=== PATIENT | male | born 1945 | race Caucasian/White ===

== ENCOUNTER 2016-12-06 23:59 | Emergency (ER) | payer MEDICARE, OTHER ==
[~2016-12-06 23:59] MED LIST: ACET500CAP PO; ALIGN PO; AMBIEN CR12.5 MG PO; ASA5GR PO; B-12; CALTRA600D PO; CALTRAT600 PO; CARDIZEM LA120 MG PO; CENTRUM TAB1 TAB PO; CITRACAL PO; ELIQUIS 5 MG TAB5 MG PO; FLOMAX4 PO; FLONASE NAS; FOLBIC; FOLBIC PO; HYDROCHLOROT12.5 MG PO; HYDROCHLOROT25 MG PO; IRON PO; K-TABS10 MEQ PO; K500 PO; LOP25 PO; LORTAB; LYRICA150 MG PO; LYRICA75 PO; MAGONATE PO; MAGOX4 PO; MAGTRATE500 MG PO; MELA3 PO; METHIMAZOLE5 MG OR; MICROZIDE PO; MIRAPEX5 PO; MULTIPLE VIT PO; MULTIVITAMI1 PO; NITROSTAT0.4 MG SL; NORV5 PO; NUVIGIL150 MG PO; OS500+D PO; PCET PO; POTASSIUM; POTASSIUM PO; PRENATABS RX PO; PROTONIX PO; Potassium PO; QUINARETIC PO; TAPAZOLE5 MG OR; TAPAZOLE5 MG PO; TRAZ100 PO; VICOPROFEN 7.5/1 TAB; VITAMIN B-12 PO; VITAMIN B-121000 MC1 SL; VITAMIN C100 M1 PO; VITAMIN C100 MG PO; VITAMIN D31000 UNIT PO; [UNRECOGNIZED DRUG - OTHER]
[2017-03-01] MEDS ORDERED: ELIQUIS 5 MG TAB5 MG PO (14:17)
[2017-03-01] MEDS ORDERED: ZYVOXPO PO (14:18)
[2017-03-01] MEDS ORDERED: MICROZIDE PO (14:20)
[2017-03-01] MEDS ORDERED: FLONASE NAS (14:20)
[2017-03-01] MEDS ORDERED: METHIMAZOLE5 MG PO (14:20)
[2017-03-01] MEDS ORDERED: TRAZ100 PO (14:21)
[2017-03-01] MEDS ORDERED: MIRAPEX5 PO (14:21)
[2017-03-01] MEDS ORDERED: FLOMAX4 PO (14:21)
[2017-03-01] MEDS ORDERED: PROTONIX PO (14:21)
[2017-03-01] MEDS ORDERED: PROBIOTIC PO (14:22)
[2017-03-01] MEDS ORDERED: VITAMIN B100 SL (14:25)
[2017-03-01] MEDS ORDERED: CALTRA600D PO (14:25)
[2017-03-01] MEDS ORDERED: VITAMIN D31000 UNIT PO (14:26)
[2017-03-01] MEDS ORDERED: PRENAVITE PO (14:26)
[2017-03-01] MEDS ORDERED: TOPXL25 PO (14:28)
[2017-03-06] MEDS ORDERED: NITROSTAT0.4 MG SL (08:11)
[2017-03-06] MEDS ORDERED: CIP5 PO (08:12)
[2017-03-06] MEDS ORDERED: PRIN2.5 PO (08:12)
[2017-03-06] MEDS ORDERED: LIPITOR40 PO (08:12)
== END 2016-12-07 01:29 | disposition home or self-care (01) ==
LOC: ER 23:59
DX: R04.0 Epistaxis (principal); I48.91 Unspecified atrial fibrillation; Z85.46 Personal history of malignant neoplasm of prostate; Z95.0 Presence of cardiac pacemaker; Z79.899 Other long term (current) drug therapy
CPT/HCPCS: 99283; A9270-GY